=== PATIENT | female | born 1985 | race Hispanic/Latino ===

== ENCOUNTER 2017-12-30 14:34 | Observation (INO) | payer MEDICAID ==
[~2017-12-30 14:34] MED LIST: PNV91TAB3 PO; [UNRECOGNIZED DRUG - CODE] PO
[2017-12-30 15:25] LABS: BASOPHILS % (AUTO) 0.4 % (0.0-5.0); EOSINOPHILS % (AUTO) 0.7 % (0.0-8.0); HEMATOCRIT 35.7 % (36-48); MEAN CORPUSCULAR HEMOGLOBIN 30.6 pg (27.0-33.0); MEAN CORPUSCULAR HGB CONC 34.5 g/dL (32.0-36.0); MEAN CORPUSCULAR VOLUME 88.7 fL (79-99); MONOCYTES % (AUTO) 5.3 % (3.0-13.0); NEUTROPHILS % (AUTO) 67.6 % (40.0-77.0); PLATELET COUNT (AUTO) 96 K/uL (130-400); RED BLOOD CELL COUNT(AUTO) 4.03 MIL/uL (4.00-5.50); RED CELL DISTRIBUTION WIDTH 18.6 % (11.0-15.5); WHITE BLOOD COUNT (AUTO) 8.9 K/uL (4.8-10.8)
[2017-12-30 15:27] LABS: APPEARANCE,URINE Cloudy (CLEAR); BILIRUBIN,URINE Small (NEGATIVE); COLOR,URINE Dark Yellow (YELLOW); GLUCOSE, URINE (UA) Negative (NEGATIVE); KETONES,URINE Trace mg/dL (NEGATIVE); LEUKOCYTE ESTERASE ,URINE Moderate (NEGATIVE); NITRATE,URINE Negative (NEGATIVE); OCCULT BLOOD,URINE Negative (NEGATIVE); PROTEIN,URINE POS 2+ (NEGATIVE)
[2017-12-30 15:33] LABS: CREATININE 0.9 mg/dL (0.5-1.5); POTASSIUM 3.8 mmol/L (3.5-5.1)
[2017-12-30 15:37] LABS: ALBUMIN 2.3 g/dL (3.5-5.0); BILIRUBIN,TOTAL 0.1 mg/dL (0.2-1.0); TOTAL PROTEIN, SERUM 6.4 g/dL (6.0-8.3); URIC ACID 5.2 mg/dL (2.6-7.2)
[2017-12-30 15:38] LABS: INR 0.87 (0.85-1.15); PARTIAL THROMBOPLASTIN TIME 27.8 SEC (26.3-35.5); PROTHROMBIN TIME 9.2 SEC (9.6-11.6)
[2017-12-30 15:44] LABS: MUCUS,URINE Few LPF (None Seen); RBC,URINE None Seen /HPF (0-1)
[2017-12-30 15:45] LABS: BACTERIA,URINE Many /HPF (None Seen)
[2017-12-30 17:40] VITALS: BP 114/69
== END 2017-12-30 17:45 | disposition home or self-care (01) ==
LOC: LDH 14:34
DX: O26.893 Other specified pregnancy related conditions, third trimester (principal); R03.0 Elevated blood-pressure reading, without diagnosis of hypertension; Z3A.37 37 weeks gestation of pregnancy; Z86.32 Personal history of gestational diabetes; Z79.01 Long term (current) use of anticoagulants
CPT/HCPCS: 36415; 80053; 81001; 84550; 85025; 85384; 85610; 85730; G0378 ×4

== ENCOUNTER 2018-04-08 18:44 | Emergency (ER) | payer MEDICAID, OTHER ==
[~2018-04-08 18:44] MED LIST changes: +GLYB2.5 PO; +IRON18TA PO; +PNV1TABL17 PO; -PNV91TAB3 PO; -[UNRECOGNIZED DRUG - CODE] PO
[2018-04-08] MEDS ORDERED: KETOROLAC TROMETHAMINE 60 MG/2 ML VIAL ONE (19:18)
[2018-04-08] MEDS ORDERED: ORPHENADRINE CITRATE 30 MG/ML ML ONE (19:18)
[2018-04-08] MEDS ORDERED: LIDOCAINE 5% TOPICAL PATCH TP ONE (19:19)
[2018-04-08 19:26] LABS: APPEARANCE,URINE CLOUDY (CLEAR); BILIRUBIN,URINE NEGATIVE (NEGATIVE); COLOR,URINE YELLOW (YELLOW); GLUCOSE, URINE (UA) NEGATIVE (NEGATIVE); KETONES,URINE NEGATIVE (NEGATIVE); LEUKOCYTE ESTERASE ,URINE SMALL (NEGATIVE); NITRATE,URINE NEGATIVE (NEGATIVE); OCCULT BLOOD,URINE NEGATIVE (NEGATIVE); PH,URINE 5.5 (5.0-8.0); PROTEIN,URINE 30 (NEGATIVE); UROBILINOGEN,URINE 0.2 mg/dL (0.2-1.0)
[2018-04-08 19:33] LABS: BACTERIA,URINE Few /HPF (None Seen); RBC,URINE 0-1 /HPF (0-1); SQUAMOUS EPITHELIAL CELL,UR Moderate /HPF (0-2)
[2018-04-08 19:34] LABS: MUCUS,URINE Few LPF (None Seen)
== END 2018-04-08 20:24 | disposition home or self-care (01) ==
LOC: EDH 18:44
DX: S39.012A Strain of muscle, fascia and tendon of lower back, initial encounter (principal); Z88.0 Allergy status to penicillin; X50.0XXA Overexertion from strenuous movement or load, initial encounter; Y93.89 Activity, other specified; Y92.89 Other specified places as the place of occurrence of the external cause; Y99.8 Other external cause status
CPT/HCPCS: 72100; 81001; 81025; 96372 ×2; 99285; J1885; J2360

== ENCOUNTER 2020-05-26 14:02 | Emergency (ER) | payer OTHER ==
[2020-05-26] MEDS ORDERED: METOCLOPRAMIDE 10 MG/2 ML VIAL ONE (14:31)
[2020-05-26] MEDS ORDERED: DiphenhydrAMINE HCL 50 MG/ML VIAL ONE (14:32)
[2020-05-26] MEDS ORDERED: SODIUM CHLORIDE 0.9% 1000ML 1,000 ML IV ONE (14:32)
[2020-05-26] MEDS ORDERED: ONDANSETRON HCL 4 MG/2 ML VIAL ONE (15:22)
[2020-05-26] MEDS ORDERED: KETOROLAC TROMETHAMINE 30MG/ML ONE (15:35)
== END 2020-05-26 16:51 | disposition home or self-care (01) ==
LOC: EDH 14:02
DX: G43.009 Migraine without aura, not intractable, without status migrainosus (principal); R11.2 Nausea with vomiting, unspecified; Z88.0 Allergy status to penicillin; Z72.0 Tobacco use
CPT/HCPCS: 81025; 96361; 96374; 96375; 99284; J1200; J1885; J2405; J2765; J7030

== ENCOUNTER 2021-05-21 14:00 | Inpatient (IN) | payer MEDICAID ==
[~2021-05-21] VITALS: Ht 160 cm; Wt 93.9 kg
[~2021-05-21 14:00] MED LIST changes: -GLYB2.5 PO; +GLYB2.5T6 PO
[2021-05-22] MEDS ORDERED: CLINDAMYCIN IVPB 900MG/50ML 50 ML IVPB PRN (12:30)
[2021-05-22] MEDS ORDERED: CALDOLOR 800MG+NS 250ML 250 ML IV PRN (12:30)
[2021-05-22] MEDS ORDERED: GENTAMICIN SULFATE 240 MG in 0.9%NACL 100ML 100 ML IV PRN (12:30)
[2021-05-22 13:07] LABS: HEMATOCRIT 30.5 % (36-48); MEAN CORPUSCULAR HGB CONC 30.5 g/dL (32.0-36.0); PLATELET COUNT (AUTO) 134 K/uL (130-400); RED BLOOD CELL COUNT(AUTO) 3.72 MIL/uL (4.00-5.50); RED CELL DISTRIBUTION WIDTH 15.6 % (11.0-15.5); WHITE BLOOD COUNT (AUTO) 10.5 K/uL (4.8-10.8)
[2021-05-22 14:50] LABS: APPEARANCE,URINE Cloudy (CLEAR); BILIRUBIN,URINE Negative (NEGATIVE); COLOR,URINE Dark Yellow (YELLOW); GLUCOSE, URINE (UA) Negative (NEGATIVE); KETONES,URINE Trace mg/dL (NEGATIVE); LEUKOCYTE ESTERASE ,URINE Trace (NEGATIVE); NITRATE,URINE Negative (NEGATIVE); OCCULT BLOOD,URINE Negative (NEGATIVE); PH,URINE 5.5 (5.0-8.0); PROTEIN,URINE POS 2+ mg/dL (NEGATIVE)
[2021-05-22 15:12] LABS: BACTERIA,URINE Few /HPF (None Seen); MUCUS,URINE Few LPF (None Seen); RBC,URINE 0-1 /HPF (0-1); SQUAMOUS EPITHELIAL CELL,UR Moderate /HPF (0-2)
[2021-05-22] MEDS: LACTATED RINGERS 1000ML 1,000 ML IV SCH (15:21)
[2021-05-22] MEDS ORDERED: MISOPROSTOL 200 MCG TABLET ONE (15:26)
[2021-05-22] MEDS ORDERED: METHYLERGONOVINE MALEATE 0.2 MG/1 ML ML ONE (15:26)
[2021-05-22] MEDS ORDERED: ONDANSETRON 4MG INJ ONE (17:21)
[2021-05-22] MEDS ORDERED: MORPHINE PF 100MG/10ML AMP IV ONE (17:21)
[2021-05-22] MEDS ORDERED: FENTANYL CITRATE PF 50 MCG/1 ML 2ML VIAL ONE ×2 (17:55→18:59)
[2021-05-22] MEDS ORDERED: PROPOFOL 10 MG/ML 20ML VIAL IV ONE (18:09)
[2021-05-22] MEDS ORDERED: LIDOCAINE 2%-EPI 1:200,000 20 ML VIAL IJ ONE (18:12)
[2021-05-22] MEDS ORDERED: DEXTROSE 5 %-0.45 % NACL 1,000 ML IV PRN ×2 (18:30→20:00)
[2021-05-22] MEDS ORDERED: PROMETHAZINE HCL 25 MG/ML 1ML AMPULE IM PRN ×2 (18:30→20:00)
[2021-05-22] MEDS ORDERED: MEPERIDINE-PF 75 MG/ML SYG IM PRN ×2 (18:30→20:00)
[2021-05-22] MEDS ORDERED: CARBOPROST TROMETHAMINE 250 MCG/ML AMP IM SCH (18:30)
[2021-05-22] MEDS ORDERED: METHYLERGONOVINE MALEATE 0.2 MG/1 ML ML IM SCH (18:30)
[2021-05-22] MEDS ORDERED: OXYTOCIN-LR 20 UNITS/1000 ML 1,000 ML IV PRN ×2 (18:30→20:00)
[2021-05-22] MEDS ORDERED: MISOPROSTOL 200 MCG TABLET PR SCH (18:30)
[2021-05-22] MEDS ORDERED: 0.9%NACL 10ML VIAL IVP PRN ×2 (18:30→20:00)
[2021-05-22] MEDS ORDERED: OXYTOCIN 10 USP UNITS/ML ONE ×2 (18:35→18:39)
[2021-05-22] MEDS ORDERED: OXYMETAZOLINE HCL SPRAY 15 ML BOTTLE ONE (18:59)
[2021-05-22 20:00] VITALS: BP 117/68
[2021-05-22] MEDS ORDERED: KETOROLAC 30MG VIAL (30MG/ML) IV PRN (20:30)
[2021-05-22] MEDS ORDERED: NALOXONE HCL 0.4 MG/1 ML ML IVP PRN ×3 (20:30)
[2021-05-22] MEDS ORDERED: DiphenhydrAMINE HCL 50 MG/ML VIAL IVP PRN (20:30)
[2021-05-22] MEDS ORDERED: LORATADINE 10 MG TABLET PO PRN (20:30)
[2021-05-22] MEDS ORDERED: ONDANSETRON 4MG INJ IVP PRN (20:30)
[2021-05-22 22:22] VITALS: BP 118/65
[2021-05-23] MEDS ORDERED: ACETAMINOPHEN WITH CODEINE 1 TAB TAB PO PRN
[2021-05-23 00:11] VITALS: BP 128/79
[2021-05-23 03:10] VITALS: BP 116/79
[2021-05-23] MEDS: CALDOLOR 800MG+NS 250ML 250 ML IV SCH ×2 (03:51→11:40)
[2021-05-23] MEDS: LACTATED RINGERS 1000ML 1,000 ML IV SCH (03:54)
[2021-05-23 06:47] LABS: HEMATOCRIT 28.7 % (36-48); MEAN CORPUSCULAR HEMOGLOBIN 24.7 pg (27.0-33.0); MEAN CORPUSCULAR HGB CONC 30.3 g/dL (32.0-36.0); MEAN CORPUSCULAR VOLUME 81.5 fL (79-99); RED BLOOD CELL COUNT(AUTO) 3.52 MIL/uL (4.00-5.50); RED CELL DISTRIBUTION WIDTH 15.5 % (11.0-15.5); WHITE BLOOD COUNT (AUTO) 11.7 K/uL (4.8-10.8)
[2021-05-23 07:16] VITALS: BP 129/65
[2021-05-23] MEDS ORDERED: BISACODYL 10 MG SUPP.RECT RC PRN (08:00)
[2021-05-23] MEDS ORDERED: HYDROCODONE/ACETAMINOPHEN 5/325 MG TAB PO PRN (08:00)
[2021-05-23] MEDS ORDERED: LANOLIN 30GM OINTMENT TP PRN (08:00)
[2021-05-23 08:14] LABS: HEPATITIS Bs ANTIGEN SCREEN P Negative (Negative)
[2021-05-23 12:09] VITALS: BP 117/73
[2021-05-23 16:35] VITALS: BP 118/75
[2021-05-23 19:20] VITALS: BP 112/74
[2021-05-23] MEDS: DOCUSATE SODIUM 100 MG CAP PO SCH ×2 (21:00→21:24)
[2021-05-23] MEDS: SIMETHICONE 80 MG TAB.CHEW PO PRN (21:25)
[2021-05-23] MEDS: IBUPROFEN 600 MG TABLET PO PRN (21:25)
[2021-05-24 00:30] VITALS: BP 129/83
[2021-05-24 03:09] VITALS: BP 112/54
[2021-05-24] MEDS: IBUPROFEN 600 MG TABLET PO PRN ×2 (03:11→09:48)
[2021-05-24 07:19] VITALS: BP 132/80
[2021-05-24] MEDS: DOCUSATE SODIUM 100 MG CAP PO SCH (09:48)
[2021-05-24] MEDS: SIMETHICONE 80 MG TAB.CHEW PO PRN (09:48)
[2021-05-24 12:06] VITALS: BP 122/83
== END 2021-05-24 13:55 | disposition home or self-care (01) | DRG 540 ==
LOC: LDH 05-22 11:59 → WSH 05-22 22:12
PROVIDERS: ADMIT Obstetrics & Gynecology; ATTEND Obstetrics & Gynecology
PROC: 0UB70ZZ Excision of Bilateral Fallopian Tubes, Open Approach (ICD-10-PCS; 2021-05-22)
PROC: 10D00Z1 Extraction of Products of Conception, Low, Open Approach (ICD-10-PCS; principal; 2021-05-22 11:35)
DX: O34.211 Maternal care for low transverse scar from previous cesarean delivery (principal); E66.01 Morbid (severe) obesity due to excess calories; O24.420 Gestational diabetes mellitus in childbirth, diet controlled; D64.9 Anemia, unspecified; G43.109 Migraine with aura, not intractable, without status migrainosus; K66.0 Peritoneal adhesions (postprocedural) (postinfection); O99.214 Obesity complicating childbirth; Z20.822 Contact with and (suspected) exposure to COVID-19; O99.62 Diseases of the digestive system complicating childbirth; O75.89 Other specified complications of labor and delivery; O90.81 Anemia of the puerperium; O99.824 Streptococcus B carrier state complicating childbirth; Z37.0 Single live birth; Z3A.39 39 weeks gestation of pregnancy; Z30.2 Encounter for sterilization; Z88.0 Allergy status to penicillin
CPT/HCPCS: 36415; 59510; 81001; 85027; 86592; 86850; 86900; 86901; 87340; 87635; 88302; A4344; G0378; J1741; J2210; J2274; J2405; J2550; J2590; J2704; J3010; J3490; J7120

== ENCOUNTER 2022-01-26 14:01 | Emergency (ER) | payer MEDICAID ==
[~2022-01-26] VITALS: Ht 160 cm; Wt 86.2 kg
[2022-01-26] MEDS ORDERED: FAMOTIDINE 20MG VIAL IV ONE (14:30)
[2022-01-26] MEDS ORDERED: 0.9%NACL 1000ML 1,000 ML IV SCH (14:30)
[2022-01-26] MEDS ORDERED: ONDANSETRON 4MG INJ IVP ONE (14:30)
[2022-01-26] MEDS ORDERED: KETOROLAC 30MG VIAL (30MG/ML) IVP ONE (14:30)
[2022-01-26] MEDS ORDERED: ACETAMINOPHEN 500 MG TABLET ONE (14:52)
[2022-01-26 14:55] VITALS: BP 158/97
[2022-01-26] MEDS ORDERED: ACETAMINOPHEN 500 MG TABLET PO ONE (15:00)
[2022-01-26] MEDS ORDERED: IBUP-1493 PO (15:18)
[2022-01-26] MEDS ORDERED: LORA-868 PO (15:18)
[2022-01-26] MEDS ORDERED: ONDA4TAB10 SL (15:18)
== END 2022-01-26 15:46 | disposition home or self-care (01) ==
LOC: EDH 14:01
DX: U07.1 COVID-19 (principal); G43.909 Migraine, unspecified, not intractable, without status migrainosus; Z88.0 Allergy status to penicillin; Z79.1 Long term (current) use of non-steroidal anti-inflammatories (NSAID)
CPT/HCPCS: 99284; 96374; 96375; 87635; 87804 ×2; C9803; J7030; J2405; J1885; S0028; J3490

== ENCOUNTER 2022-10-12 11:16 | Emergency (ER) | payer MEDICAID ==
[~2022-10-12] VITALS: Ht 157.5 cm; Wt 86.2 kg
[~2022-10-12 11:16] MED LIST changes: +IBUP-1493 PO; +LORA-868 PO; +ONDA4TAB10 SL
[2022-10-12 12:55] LABS: APPEARANCE,URINE CLOUDY (CLEAR); BILIRUBIN,URINE NEGATIVE (NEGATIVE); COLOR,URINE YELLOW (YELLOW); GLUCOSE, URINE (UA) NEGATIVE (NEGATIVE); KETONES,URINE NEGATIVE (NEGATIVE); LEUKOCYTE ESTERASE ,URINE 500 Leu/uL (NEGATIVE); NITRATE,URINE NEGATIVE (NEGATIVE); OCCULT BLOOD,URINE LARGE (NEGATIVE); PROTEIN,URINE 50 mg/dL (NEGATIVE); UROBILINOGEN,URINE 0.2 mg/dL (0.2-1.0)
[2022-10-12 12:56] LABS: HCG,QUALITATIVE URINE NEGATIVE (NEGATIVE)
[2022-10-12 13:01] LABS: BASOPHILS % (AUTO) 0.2 % (0.0-5.0); EOSINOPHILS % (AUTO) 0.2 % (0.0-8.0); HEMATOCRIT 38.1 % (36-48); LYMPHOCYTES % (AUTO) 7.9 % (21.0-51.0); MEAN CORPUSCULAR HEMOGLOBIN 27.1 pg (27.0-33.0); MEAN CORPUSCULAR HGB CONC 32.5 g/dL (32.0-36.0); MEAN CORPUSCULAR VOLUME 83.4 fL (79-99); MONOCYTES % (AUTO) 5.2 % (3.0-13.0); NEUTROPHILS % (AUTO) 86.3 % (40.0-77.0); PLATELET COUNT (AUTO) 204 K/uL (130-400); RED BLOOD CELL COUNT(AUTO) 4.57 MIL/uL (4.00-5.50); WHITE BLOOD COUNT (AUTO) 11.4 K/uL (4.8-10.8)
[2022-10-12 13:11] LABS: BACTERIA,URINE FEW /HPF (None Seen); MUCUS,URINE RARE LPF (None Seen); SQUAMOUS EPITHELIAL CELL,UR MANY /HPF (0-2); WBC,URINE 51-100 /HPF (0-1)
[2022-10-12 13:11] LABS: CREATININE 0.8 mg/dL (0.5-1.5); POTASSIUM 3.8 mmol/L (3.5-5.1)
[2022-10-12 13:16] LABS: ALBUMIN 3.8 g/dL (3.5-5.0); TOTAL PROTEIN, SERUM 8.3 g/dL (6.0-8.3)
[2022-10-12 13:57] VITALS: BP 121/84
[2022-10-12] MEDS ORDERED: ONDANSETRON ODT 4MG TAB SL ONE (14:00)
[2022-10-12] MEDS ORDERED: FLUT15.845 NS (14:07)
[2022-10-12] MEDS ORDERED: P-EP-94 PO (14:07)
[2022-10-12] MEDS ORDERED: ONDA4TAB10 PO (14:07)
[2022-10-12] MEDS ORDERED: KETOROLAC 30MG VIAL (30MG/ML) IM ONE (15:30)
== END 2022-10-12 15:59 | disposition home or self-care (01) ==
LOC: EDH 11:16
DX: B34.9 Viral infection, unspecified (principal); Z20.822 Contact with and (suspected) exposure to COVID-19; Z79.899 Other long term (current) drug therapy; Z98.890 Other specified postprocedural states; Z88.0 Allergy status to penicillin
CPT/HCPCS: 99283; 87635; 80053; 85025; 87088; 87880; 87804 ×2; 81001; 81025; 36415; 96372; C9803; J1885